=== PATIENT | female | born 1970 | race Caucasian/White ===

== ENCOUNTER 2018-01-06 17:09 | Outpatient (REF) | payer MEDICARE, MEDICAID, SELFPAY ==
[2018-01-06 22:11] LABS: Bilirubin Negative (Negative); Blood Negative (Negative); Clarity Clear; Glucose Negative (Negative); Ketones 15 mg/dL (Negative); Leukocyte Esterase Negative (Negative); Nitrite Negative (Negative); Urobilinogen 0.2 EU/dL (Up TO 0.2); pH 6.5 (5-8)
[2018-01-06 22:24] LABS: TSH 3.62 uIU/mL (0.358-3.74)
== END 2018-01-06 17:29 ==
LOC: NCHCN 17:09
PROVIDERS: PCP Registered Nurse; Visit Provider Registered Nurse
DX: E03.9 Hypothyroidism, unspecified (principal)
CPT/HCPCS: 81003; 84443

== ENCOUNTER 2019-01-31 11:31 | Outpatient (REF) | payer MEDICARE, SELFPAY ==
[2019-01-31 21:36] LABS: TSH (W/Ref FT4) 0.77 uIU/mL (0.36-3.74)
== END 2019-01-31 11:51 ==
LOC: NCHCN 11:31
PROVIDERS: PCP Registered Nurse; Visit Provider Registered Nurse
DX: E03.9 Hypothyroidism, unspecified (principal)
CPT/HCPCS: 84443

== ENCOUNTER 2019-05-02 10:41 | Outpatient (REF) | payer MEDICARE, SELFPAY | END 2019-05-02 11:01 | LOC: NCHCN 10:41 | PROVIDERS: PCP Registered Nurse; Visit Provider Registered Nurse | DX: R35.0 Frequency of micturition (principal) | CPT/HCPCS: 87086 ==

== ENCOUNTER 2019-08-04 09:55 | Outpatient (REF) | payer MEDICARE, SELFPAY ==
[2019-08-07 12:10] LABS: HIV-1/2 Ag & Ab Screen Negative (Negative)
[2019-08-07 15:47] LABS: Chlamydia Result Negative (Negative); GC Result Negative (Negative)
[2019-08-09 14:32] LABS: HCV RNA Qualitative Undetected (Undetected)
== END 2019-08-04 10:15 ==
LOC: NCHCN 09:55
PROVIDERS: PCP Registered Nurse; Visit Provider Registered Nurse
DX: Z11.3 Encounter for screening for infections with a predominantly sexual mode of transmission (principal); Z11.4 Encounter for screening for human immunodeficiency virus [HIV]
CPT/HCPCS: 87389; 87491; 87522; 87591

== ENCOUNTER 2020-04-23 18:48 | Outpatient (REF) | payer MEDICARE, SELFPAY ==
[2020-04-25 11:34] LABS: COVID-19 RT-PCR UVMMC Result Negative (Negative)
== END 2020-04-23 18:49 | disposition home or self-care (01) ==
LOC: NCHCN 18:48
PROVIDERS: PCP Registered Nurse; Visit Provider Nurse Practitioner Family
DX: Z20.822 Contact with and (suspected) exposure to COVID-19 (principal); R19.7 Diarrhea, unspecified
CPT/HCPCS: U0003; U0005

== ENCOUNTER 2020-09-10 08:35 | Outpatient (REF) | payer MEDICARE, SELFPAY ==
[2020-09-10 15:44] LABS: TSH 0.22 uIU/mL (0.36-3.74)
== END 2020-09-10 08:36 | disposition home or self-care (01) ==
LOC: NCHCN 08:35
PROVIDERS: PCP Registered Nurse; Visit Provider Registered Nurse
DX: E03.9 Hypothyroidism, unspecified (principal)
CPT/HCPCS: 84443

== ENCOUNTER 2020-09-17 17:12 | Outpatient (REF) | payer MEDICARE, SELFPAY ==
[2020-09-19 11:30] LABS: COVID-19 RT-PCR UVMMC Result Negative (Negative)
== END 2020-09-17 17:13 | disposition home or self-care (01) ==
LOC: NCHCN 17:12
PROVIDERS: PCP Registered Nurse; Visit Provider Nurse Practitioner Family
DX: J02.9 Acute pharyngitis, unspecified (principal); Z20.822 Contact with and (suspected) exposure to COVID-19
CPT/HCPCS: U0003; U0005

== ENCOUNTER 2020-10-02 17:16 | Outpatient (REF) | payer MEDICARE, SELFPAY ==
[2020-10-02 22:27] LABS: Anion Gap 10.2 mmol/L (3-11); BUN 12 mg/dL (7-18); CO2 26.8 mmol/L (21.0-32.0); CREATININE 0.7 mg/dL (0.55-1.02); Calcium 9.4 mg/dL (8.5-10.1); Calculated LDL 135 mg/dL (<100); Chloride 102 mmol/L (98-107); Cholesterol 226 mg/dL (<200); Glucose 89 mg/dL (74-106); HDL Cholesterol 46 mg/dL (40-60); Potassium 4.5 mmol/L (3.5-5.1); Sodium 139 mmol/L (136-145); Triglyceride 228 mg/dL (<150)
[2020-10-04 10:02] LABS: HIV-1/2 Ag & Ab Screen Negative (Negative)
[2020-10-04 14:42] LABS: Chlamydia Result Negative (Negative); GC Result Negative (Negative)
== END 2020-10-02 17:17 | disposition home or self-care (01) ==
LOC: NCHCN 17:16
PROVIDERS: PCP Registered Nurse; Visit Provider Registered Nurse
DX: E78.5 Hyperlipidemia, unspecified (principal); I10 Essential (primary) hypertension; Z11.3 Encounter for screening for infections with a predominantly sexual mode of transmission; Z11.4 Encounter for screening for human immunodeficiency virus [HIV]
CPT/HCPCS: 80048; 80061; 87389; 87491; 87591

== ENCOUNTER 2020-11-18 07:49 | Outpatient (REF) | payer MEDICARE, SELFPAY ==
[2020-11-18 14:50] LABS: TSH 3.64 uIU/mL (0.36-3.74)
== END 2020-11-18 07:50 | disposition home or self-care (01) ==
LOC: NCHCN 07:49
PROVIDERS: PCP Registered Nurse; Visit Provider Registered Nurse
DX: E03.9 Hypothyroidism, unspecified (principal)
CPT/HCPCS: 84443

== ENCOUNTER 2021-03-19 16:00 | Outpatient (REF) | payer MEDICARE, SELFPAY ==
[2021-03-19 18:44] LABS: TSH 6.19 uIU/mL (0.36-3.74)
== END 2021-03-19 16:01 | disposition home or self-care (01) ==
LOC: NCHCN 16:00
PROVIDERS: PCP Registered Nurse; Visit Provider Registered Nurse
DX: E03.9 Hypothyroidism, unspecified (principal)
CPT/HCPCS: 84443

== ENCOUNTER 2021-05-15 17:58 | Outpatient (REF) | payer SELFPAY ==
[2021-05-15 15:19] LABS: TSH 1.37 uIU/mL (0.36-3.74)
== END 2021-05-15 17:59 | disposition home or self-care (01) ==
LOC: NCHCN 17:58
PROVIDERS: PCP Registered Nurse; Visit Provider Registered Nurse
DX: E03.9 Hypothyroidism, unspecified (principal)
CPT/HCPCS: 84443

== ENCOUNTER 2022-04-27 17:10 | Outpatient (REF) | payer MEDICARE, SELFPAY ==
[2022-04-27 18:01] LABS: Calculated LDL 173 mg/dL (<100); Cholesterol 298 mg/dL (<200); HDL Cholesterol 51 mg/dL (40-60); TSH 6.58 uIU/mL (0.36-3.74); Triglyceride 370 mg/dL (<150)
== END 2022-04-27 17:11 | disposition home or self-care (01) ==
LOC: NCHCN 17:10
PROVIDERS: PCP Registered Nurse; Visit Provider Registered Nurse
DX: E78.5 Hyperlipidemia, unspecified (principal); E03.9 Hypothyroidism, unspecified
CPT/HCPCS: 80061; 84443

== ENCOUNTER 2022-06-22 13:14 | Outpatient (REF) | payer MEDICARE, SELFPAY ==
[2022-06-22 15:28] LABS: TSH 2.58 uIU/mL (0.36-3.74)
== END 2022-06-22 13:15 | disposition home or self-care (01) ==
LOC: NCHCN 13:14
PROVIDERS: PCP Registered Nurse; Visit Provider Registered Nurse
DX: E03.9 Hypothyroidism, unspecified (principal)
CPT/HCPCS: 84443

== ENCOUNTER 2024-03-03 13:15 | Outpatient (REF) | payer MEDICARE, SELFPAY ==
[2024-03-03 14:59] LABS: HCT 46.5 % (36.0-46.0); HGB 15.2 g/dL (11.2-15.7); MCH 28.7 pg (27.0-33.0); MCHC 32.7 % (32.0-36.0); MCV 88 fL (80-95); MPV 12.1 fL (8.0-11.0); Platelet Count 218 10^3/uL (130-400); RDW 12.2 % (11.7-14.6); RDW-SD 39.5 fL; WBC 7.22 10^3/uL (4.4-10.8)
[2024-03-03 15:19] LABS: ALT 29 U/L (14-59); AST 21 U/L (15-37); Albumin 4.3 g/dL (3.4-5.0); Alkaline Phosphatase 103 U/L (46-116); Anion Gap 7.9 mmol/L (3-11); BUN 11 mg/dL (7-18); Bilirubin, Total 0.35 mg/dL (0.2-1.0); CO2 29.1 mmol/L (21.0-32.0); CREATININE 0.9 mg/dL (0.55-1.02); Calcium 10.2 mg/dL (8.5-10.1); Calculated LDL 173 mg/dL (<100); Chloride 104 mmol/L (98-107); Cholesterol 306 mg/dL (<200); Estimated GFR 75.97 (mL/min/1.73m2); Glucose 102 mg/dL (74-106); HDL Cholesterol 53 mg/dL (40-60); Potassium 4.5 mmol/L (3.5-5.1); Sodium 141 mmol/L (136-145); Total Protein 8.8 g/dL (6.4-8.2); Triglyceride 400 mg/dL (<150)
[2024-03-03 16:09] LABS: TSH (W/Ref FT4) 0.16 uIU/mL (0.36-3.74)
[2024-03-03 16:37] LABS: FREE T4 1.09 ng/dL (0.76-1.46)
== END 2024-03-03 13:16 | disposition home or self-care (01) ==
LOC: NCHCN 13:15
PROVIDERS: PCP Registered Nurse; Visit Provider Family Medicine
DX: I10 Essential (primary) hypertension (principal)
CPT/HCPCS: 80053; 80061; 85027; 84439; 84443

== ENCOUNTER 2024-05-23 13:20 | Outpatient (REF) | payer MEDICARE, SELFPAY ==
[2024-05-23 15:47] LABS: TSH 3.43 uIU/mL (0.36-3.74)
== END 2024-05-23 13:21 | disposition home or self-care (01) ==
LOC: NCHCN 13:20
PROVIDERS: PCP Registered Nurse; Visit Provider Family Medicine
DX: E03.9 Hypothyroidism, unspecified (principal)
CPT/HCPCS: 84443

== ENCOUNTER 2024-08-11 20:47 | Outpatient (REF) | payer MEDICARE, SELFPAY ==
[2024-08-11 19:10] LABS: TSH 1.77 uIU/mL (0.36-3.74)
[2024-08-11 19:33] LABS: FREE T4 1.06 ng/dL (0.76-1.46)
[2024-08-12 22:27] LABS: T3, Total 143 ng/dL (97-169)
== END 2024-08-11 20:48 | disposition home or self-care (01) ==
LOC: NCHCN 20:47
PROVIDERS: PCP Registered Nurse; Visit Provider Physician Assistant
DX: E03.9 Hypothyroidism, unspecified (principal)
CPT/HCPCS: 84439; 84443; 84480

== ENCOUNTER 2024-09-08 12:15 | Outpatient (REF) | payer SELFPAY ==
[2024-09-08 15:12] LABS: HCT 41.7 % (36.0-46.0); HGB 14.0 g/dL (11.2-15.7); MCH 29.1 pg (27.0-33.0); MCHC 33.6 % (32.0-36.0); MCV 87 fL (80-95); MPV 11.9 fL (8.0-11.0); Platelet Count 196 10^3/uL (130-400); RBC 4.81 10^6/uL (3.93-5.22); RDW 12.3 % (11.7-14.6); RDW-SD 39.1 fL; WBC 5.53 10^3/uL (4.4-10.8)
== END 2024-09-08 12:16 | disposition home or self-care (01) ==
LOC: NCHCN 12:15
PROVIDERS: PCP Registered Nurse; Visit Provider Family Medicine
DX: R79.89 Other specified abnormal findings of blood chemistry (principal)
CPT/HCPCS: 85027

== ENCOUNTER 2024-12-07 08:09 | Outpatient (REF) | payer SELFPAY ==
[2024-12-07 14:52] LABS: HCT 42.4 % (36.0-46.0); HGB 13.9 g/dL (11.2-15.7); MCH 28.5 pg (27.0-33.0); MCHC 32.8 % (32.0-36.0); MCV 87 fL (80-95); MPV 11.9 fL (8.0-11.0); Platelet Count 182 10^3/uL (130-400); RBC 4.87 10^6/uL (3.93-5.22); RDW 11.9 % (11.7-14.6); RDW-SD 38.2 fL; WBC 6.07 10^3/uL (4.4-10.8)
[2024-12-07 15:09] LABS: ALT 35 U/L (14-59); AST 27 U/L (15-37); Albumin 4.0 g/dL (3.4-5.0); Alkaline Phosphatase 94 U/L (46-116); Anion Gap 8.4 mmol/L (3-11); BUN 14 mg/dL (7-18); Bilirubin, Total 0.5 mg/dL (0.2-1.0); CO2 28.6 mmol/L (21.0-32.0); Calcium 9.2 mg/dL (8.5-10.1); Calculated LDL 70 mg/dL (<100); Chloride 104 mmol/L (98-107); Cholesterol 159 mg/dL (<200); Estimated GFR 86.96 (mL/min/1.73m2); Glucose 118 mg/dL (74-106); HDL Cholesterol 43 mg/dL (>or=50); Potassium 5.0 mmol/L (3.5-5.1); Sodium 141 mmol/L (136-145); TSH (W/Ref FT4) 2.87 uIU/mL (0.36-3.74); Total Protein 7.8 g/dL (6.4-8.2); Triglyceride 232 mg/dL (<150)
== END 2024-12-07 08:10 | disposition home or self-care (01) ==
LOC: NCHCN 08:09
PROVIDERS: PCP Registered Nurse; Visit Provider Family Medicine
DX: E03.9 Hypothyroidism, unspecified (principal); E78.5 Hyperlipidemia, unspecified; I10 Essential (primary) hypertension
CPT/HCPCS: 80053; 80061; 85027; 84443